=== PATIENT | male | born 1975 | race Caucasian/White ===

== ENCOUNTER 2019-02-14 16:59 | Emergency (ER) | payer OTHER ==
[2019-02-14 17:12] VITALS: BP 149/91
[2019-02-14] MEDS ORDERED: HYDR25SU18 RC (17:36)
[2019-02-14 17:59] LABS: BILIRUBIN,URINE NEG (NEG); CLARITY,URINE CLEAR; COLOR,URINE YELLOW; GLUCOSE,URINE NEG (NEG)
[2019-02-14 18:00] LABS: NITRITE,URINE NEG (NEG); SQUAMOUS EPITHELIAL CELL,UR OCC /LPF; UROBILINOGEN,URINE 0.2 mg/dL (0.2 mg/dL); WBC,URINE RARE /HPF (0-4)
[2019-02-14 18:01] LABS: BACTERIA,URINE 0 /HPF (0-FEW)
--- NOTE | 2019-02-14 19:10 | PHYS DOC ---
Past History Past Medical History: High Cholesterol Past Surgical History: Other Additional Past Surgical Histo: left ACL repair in 2008 Alcohol Use: None Drug Use: None Adult General Chief Complaint Chief Complaint: PAIN ON URINATION [facility] HPI Patient is a 43-year-old male who presents with a urinary problem. He's had a sensation of incomplete bladder emptying he says that sometimes in the morning it's really hard for him to get the urine out the stream to start in that it feels like it's not really empty he really has to push this is accompanied by a recent hemorrhoid he has a known history of hemorrh[place] he has been eating bread sitting in one chair with no cushion for several hours at a time he knows he has a hemorrhoid he has been self treating with Preparation H is slowly getting bigger he could feel it popping out Review of Systems Review of Systems Constitutional: Denies fever or chills [] Eyes: Denies change in visual acuity, redness, or eye pain [] HENT: Denies nasal congestion or sore throat [] Respiratory: Denies cough or shortness of breath [] Cardiovascular: No additional information not addressed in HPI [] Mild constipation but no abdominal pain Musculoskeletal: Denies back pain or joint pain [] Integument: Denies rash or skin lesions [] Neurologic: Denies headache, focal weakness or sensory changes [] Endocrine: Denies polyuria or polydipsia [] All other systems were reviewed and found to be within normal limits, except as documented in this note. Allergies Allergies Allergies Coded Allergies Type Severity Reaction Last Updated Verified No Known Drug Allergies 02/14/19 No Physical Exam Physical Exam Constitutional: Well developed, well nourished, no acute distress, non-toxic appearance. [] HENT: Normocephalic, atraumatic, bilateral external ears normal, oropharynx moist, no oral exudates, nose normal. [] Eyes: PERRLA, EOMI, conjunctiva normal, no discharge. [] Abdomen: Bowel sounds normal, soft, no tenderness, no masses, no pulsatile masses. [] Skin: Warm, dry, no erythema, no rash. [] gu normal penis and testicles no hernia rectal exam external exam showed some mild fullness at 6:00 possible very small hemorrhoid no erythema noted no induration Back: No tenderness, no CVA tenderness. [] Extremities: No tenderness, no cyanosis, no clubbing, ROM intact, no edema. [] Neurologic: Alert and oriented X 3, normal motor function, normal sensory function, no focal deficits noted. [] Psychologic: Affect normal, judgement normal, mood normal. [] Current Patient Data Vital Signs Vital Signs Date Time Temp Pulse Resp B/P (MAP) Pulse Ox O2 Delivery O2 Flow Rate FiO2 02/14/19 17:12 98.6 97 18 98 Room Air Lab Results Laboratory Tests Test 02/14/19 17:03 Urine Collection Type Unknown Urine Color Yellow Urine Clarity Clear Urine pH 5.5 Urine Specific [place] 1.020 Urine Protein Neg (NEG-TRACE) Urine Glucose (UA) Neg mg/dL (NEG) Urine Ketones (Stick) Neg mg/dL (NEG) Urine Blood Neg (NEG) Urine Nitrite Neg (NEG) Urine Bilirubin Neg (NEG) Urine Urobilinogen Dipstick 0.2 mg/dL (0.2 mg/dL) Urine Leukocyte Esterase Neg (NEG) Urine RBC 1-2 /HPF (0-2) Urine WBC Rare /HPF (0-4) Urine Squamous Epithelial Cells Occ /LPF Urine Bacteria 0 /HPF (0-FEW) Urine Mucus Slight /LPF EKG EKG [] Temperature (Fahrenheit): * 98.6 degrees F (97.6-99.5) Patient Temperature * 98.6 degrees F (97.5-99.5) Temperature Source * Oral Blood Pressure Systolic * 149 mm Hg (100-140) H Blood Pressure Diastolic * 91 mm Hg (60-100) Blood Pressure Mean * 110 mm Hg Pulse Rate * 97 beats per minute (60-90) H Respiratory Rate * 18 breaths per minute (12-24) Oxygen Delivery Method * Room Air Bedside Pulse Oximetry * 98 % Treatment Prior to Arrival * No Complaint of Pain * No Radiology/Procedures Radiology/Procedures [] Course & Med Decision Making Course & Med Decision Making Pertinent Labs and Imaging studies reviewed. (See chart for details) []I suspect symptomatically M her urinalysis was negative we did a bladder scan that showed 0 left in there will try Anusol return precautions discussed patient voiced understanding Talib Disclaimer Talib Disclaimer This electronic medical record was generated, in whole or in part, using a voice recognition dictation system. Departure Departure: Impression: Primary Impression: Hemorrhoid Disposition: HOME, SELF-CARE Condition: STABLE Patient Instructions: Hemorrhoids, [id number] Scripts Hydrocortisone Acetate (ANUSOL-HC) 25 Mg Supp.rect 1 SUPP RC BID for hemorrhoid for 14 Days, #28 SUPP 0 Refills Prov: NARAYAN ANTONIO MD 02/14/19 NARAYAN ANTONIO MD Feb 14, 2019 19:10
== END 2019-02-14 18:05 | disposition home or self-care (01) ==
LOC: ER 16:59
DX: K64.9 Unspecified hemorrhoids (principal); K59.00 Constipation, unspecified; E78.5 Hyperlipidemia, unspecified
CPT/HCPCS: 81001; 99285